=== PATIENT | female | born 1940 | race African-American/Black ===

== ENCOUNTER 2016-10-09 12:31 | Emergency (ER) | payer OTHER, MEDICAID ==
[~2016-10-09 12:31] MED LIST: ASPI81TA9 PO; DILT30TA26 PO; IBUP-1027 PO; LISI1TAB3 PO; LISI1TAB7 PO; NAPR220C4 PO; TIZA4TAB8 PO; TRAM50TA PO
[2016-10-09 12:59] VITALS: BP 132/63
--- NOTE | 2016-10-09 13:28 | RAD ---
Chest, 2 views, 10/09/2016: History: Cough and shortness of breath Comparison is made to a study from 04/13/2016. The heart is at the upper limits of normal in size. The pulmonary vascularity is normal. An unchanged dense nodule in the left base is compatible with a granuloma. No acute infiltrates are seen. There is no evidence of pleural fluid. IMPRESSION: No acute cardiopulmonary abnormality is detected.
[2016-10-09 13:46] LABS: OBC FLU VALID
[2016-10-09] MEDS ORDERED: PRED50TA PO (14:43)
[2016-10-09] MEDS ORDERED: PROM5SYR2 PO (14:43)
[2016-10-09] MEDS ORDERED: PROAIR RESPICL90 MCG IH (14:43)
[2016-10-09] MEDS ORDERED: AZIT250T6 PO (14:43)
--- NOTE | 2016-10-09 14:43 | PHYS DOC ---
Past Medical History Past Medical History: A-Fib, Hypertension, Other Additional Past Medical Histor: BREAST CANCER, Atrial fibrillation Past Surgical History: Cholecystectomy Additional Past Surgical Histo: L breast Alcohol Use: None Drug Use: Marijuana Adult General Chief Complaint Chief Complaint: FLU SYMPTOM HPI HPI Patient is a 76 year old female with history of hypertension and smoking who presents today with subjective fevers, body aches, chills and right ear pain for one week. Patient states she is also a smoker. Patient denies any chest pain or shortness of breath. PCP Dr. Holland Review of Systems Review of Systems Constitutional: Subjective fevers and chills Eyes: Denies change in visual acuity, redness, or eye pain [] HENT: Right ear pain Respiratory: Cough and nasal congestion Cardiovascular: No additional information not addressed in HPI [] GI: Denies abdominal pain, nausea, vomiting, bloody stools or diarrhea [] : Denies dysuria or hematuria [] Musculoskeletal: Denies back pain or joint pain [] Integument: Denies rash or skin lesions [] Neurologic: Denies headache, focal weakness or sensory changes [] Endocrine: Denies polyuria or polydipsia [] Allergies Allergies Allergies Coded Allergies Type Severity Reaction Last Updated Verified No Known Drug Allergies 01/14/14 No Physical Exam Physical Exam Constitutional: Well developed, well nourished, no acute distress, non-toxic appearance. [] HENT: Normocephalic, atraumatic, bilateral external ears normal, oropharynx moist, no oral exudates, nose normal. [] Eyes: PERRLA, EOMI, conjunctiva normal, no discharge. [] Neck: Normal range of motion, no tenderness, supple, no stridor. [] Cardiovascular:Heart rate regular rhythm, no murmur [] Lungs & Thorax: Bilateral breath sounds clear to auscultation [] Abdomen: Bowel sounds normal, soft, no tenderness, no masses, no pulsatile masses. [] Skin: Warm, dry, no erythema, no rash. [] Back: No tenderness, no CVA tenderness. [] Extremities: No tenderness, no cyanosis, no clubbing, ROM intact, no edema. [] Neurologic: Alert and oriented X 3, normal motor function, normal sensory function, no focal deficits noted. [] Psychologic: Affect normal, judgement normal, mood normal. [] Current Patient Data Vital Signs Vital Signs Date Time Temp Pulse Resp B/P Pulse Ox O2 Delivery O2 Flow Rate FiO2 10/09/16 12:59 98.2 69 18 96 Room Air 98.2 Lab Values Laboratory Tests Test 10/09/16 13:04 Influenza Type A Antigen Negative (NEGATIVE) Influenza Type B Antigen Negative (NEGATIVE) EKG EKG [] Radiology/Procedures Radiology/Procedures [] Course & Med Decision Making Course & Med Decision Making Pertinent Labs and Imaging studies reviewed. (See chart for details) Patient with history of smoking presents today with a cough, right ear pain, body aches and subjective fevers for week. Chest x-ray interpreted by radiologist is negative for any acute findings. Negative influenza A or B. Patient is in no distress. Considering her medical history history i put her on the Z-Bert to cover her for bacterial bronchitis. Discharge her with prednisone as well as albuterol inhaler. Encouraged her to consider smoking cessation. Follow-up with her own doctor next week. Dragon Disclaimer Dragon Disclaimer This electronic medical record was generated, in whole or in part, using a voice recognition dictation system. Departure Departure Impression: Primary Impression: Acute bronchitis Additional Impression: Smoking addiction Disposition: HOME, SELF-CARE Condition: STABLE Referrals: MARCO LOGAN MD (PCP) Follow-up with your own doctor in one week Patient Instructions: Acute Bronchitis, [id number] Additional Instructions: You were seen for acute bronchitis. Please complete your antibiotics. Take the prescribed medicines as ordered. Stop smoking. Follow-up with your doctor in the next 7 days. Come back to the emergency room if symptoms worsen. Scripts Promethazine HCl/Codeine (Prometh-Codein 6.25-10 mg/5 ml)5 Ml Syrup5 Ml PO Q6HRS #80 Prov:JOSE EDUARDO FLANNERY APRN 10/09/16 Azithromycin (Azithromycin Tablet)250 Mg Tablet1 Pkg PO UD #6 TAB Prov:JOSE EDUARDO FLANNERY LANGUAGE PATH 10/09/16 Prednisone 50 Mg Tablet1 Tab PO DAILY #5 TAB Prov:JOSE EDUARDO FLANNERY LANGUAGE PATH 10/09/16 Albuterol Sulfate (Proair Respiclick)90 Mcg Aer.pow.ba1 Puff IH PRN Q6HRS PRN SHORTNESS OF BREATH #1 INHALER Prov:JOSE EDUARDO FLANNERY APRN 10/09/16 Problem Qualifiers Primary Impression: Acute bronchitis Bronchitis organism: unspecified organism Qualified Code: J20.9 - Acute bronchitis, unspecified JOSE EDUARDO FLANNERY LANGUAGE PATH Oct 09, 2016 14:43
== END 2016-10-09 14:35 | disposition home or self-care (01) ==
LOC: ER 12:31
DX: J20.9 Acute bronchitis, unspecified (principal); I10 Essential (primary) hypertension; I48.91 Unspecified atrial fibrillation; F12.10 Cannabis abuse, uncomplicated; F17.210 Nicotine dependence, cigarettes, uncomplicated; Z90.49 Acquired absence of other specified parts of digestive tract
CPT/HCPCS: 71020; 87804; 99285-25

== ENCOUNTER → 2016-11-11 | Outpatient (CLI) | payer MEDICAID, OTHER ==
[~2016-11-11] MED LIST changes: +AZIT250T6 PO; +PRED50TA PO; +PROAIR RESPICL90 MCG IH; +PROM5SYR2 PO
--- NOTE | 2016-11-11 10:49 | KCIC ---
PROCEDURE Bilateral digital screening mammogram. HISTORY 76-year-old female with a history of left breast cancer, status post left breast conservation therapy, presents for annual mammography. TECHNIQUE Full field digital craniocaudal and mediolateral oblique views of both breasts are obtained. Computer-aided detection is applied. COMPARISON 10/24/2015 and 10/16/2014 FINDINGS Breast parenchymal composition: Level B - Scattered fibroglandular densities. There is relative decreased left breast size with architectural distortion, increased density and skin thickening due to prior breast conservation therapy. There are several clustered and scattered calcifications within the left breast which demonstrate benign morphology, stable in appearance. There is no calcification within either breast with suspicious morphology. There is density within the medial left breast which is due to a skin fold. There is density within the superior right breast on the mediolateral oblique view without a correlate on the craniocaudal view, consistent with summation artifact. IMPRESSION BI-RADS category 2: Benign finding. Annual mammography is recommended. Mammography is not 100% sensitive in detecting breast cancer. Therefore, a self breast exam and a clinical breast exam are very important. A negative mammogram does not negate a clinically suspicious finding and should not result in a delay in biopsying a clinically suspicious abnormality. This patient's information has been entered into a reminder system for the patient to be notified with the results of this examination and a target date for her next mammograms. Electronically signed by: Ana Odonnell (Nov 11, 2016 10:47:03)
== END | disposition home or self-care (01) ==
LOC: KCIC MAMMO 09:23
PROVIDERS: ATTEND Internal Medicine
DX: Z12.31 Encounter for screening mammogram for malignant neoplasm of breast (principal); Z85.3 Personal history of malignant neoplasm of breast; Z90.12 Acquired absence of left breast and nipple
CPT/HCPCS: G0202; 77067

== ENCOUNTER 2016-12-28 09:07 | Emergency (ER) | payer OTHER ==
[~2016-12-28] VITALS: Ht 167.6 cm; Wt 83.5 kg
--- NOTE | 2016-12-28 09:56 | PHYS DOC ---
Past Medical History Past Medical History: A-Fib, Hypertension, Other Additional Past Medical Histor: BREAST CANCER, Atrial fibrillation Past Surgical History: Cholecystectomy Additional Past Surgical Histo: L breast Additional Information: 09/20 ppd Alcohol Use: None Drug Use: Marijuana Adult General Chief Complaint Chief Complaint: SORE THROAT HPI HPI Patient is a 76 year old female with history of A. fib and hypertension who presents today with sore throat coughing and nasal congestion that began a week ago. Patient states she's had intermittent subjective fevers. She also states she is a smoker. Patient denies any chest pain or shortness of breath. She states she's been using [id number] remedies with no relief. Review of Systems Review of Systems Constitutional: Subjective fevers Eyes: Denies change in visual acuity, redness, or eye pain [] HENT: Nasal congestion and sore throat [] Respiratory: Cough Cardiovascular: No additional information not addressed in HPI [] GI: Denies abdominal pain, nausea, vomiting, bloody stools or diarrhea [] : Denies dysuria or hematuria [] Musculoskeletal: Denies back pain or joint pain [] Integument: Denies rash or skin lesions [] Neurologic: Denies headache, focal weakness or sensory changes [] Endocrine: Denies polyuria or polydipsia [] Current Medications Current Medications Current Medications Medications (Trade) Dose Ordered Sig/Sánchez Start Time Stop Time Status Last Admin Dose Admin Lidocaine HCl (Viscous Lidocaine) 15 ml 1X ONCE 12/28/16 10:00 12/28/16 10:01 DC 12/28/16 10:25 15 ML Allergies Allergies Allergies Coded Allergies Type Severity Reaction Last Updated Verified No Known Drug Allergies 01/14/14 No Physical Exam Physical Exam Constitutional: Well developed, well nourished, no acute distress, non-toxic appearance. [] HENT: Normocephalic, atraumatic, bilateral external ears normal, oropharynx moist, no oral exudates, nose normal. [] Eyes: PERRLA, EOMI, conjunctiva normal, no discharge. [] Neck: Normal range of motion, no tenderness, supple, no stridor. [] Cardiovascular:Heart rate regular rhythm, no murmur [] Lungs & Thorax: Bilateral breath sounds clear to auscultation [] Abdomen: Bowel sounds normal, soft, no tenderness, no masses, no pulsatile masses. [] Skin: Warm, dry, no erythema, no rash. [] Back: No tenderness, no CVA tenderness. [] Extremities: No tenderness, no cyanosis, no clubbing, ROM intact, no edema. [] Neurologic: Alert and oriented X 3, normal motor function, normal sensory function, no focal deficits noted. [] Psychologic: Affect normal, judgement normal, mood normal. [] Current Patient Data Vital Signs Vital Signs Date Time Temp Pulse Resp B/P Pulse Ox O2 Delivery O2 Flow Rate FiO2 12/28/16 09:09 97.7 74 20 161/65 98 Room Air 97.7 Lab Values Laboratory Tests Test 12/28/16 10:13 12/28/16 10:25 Group A Streptococcus Rapid Negative (NEGATIVE) Influenza Type A Antigen Negative (NEGATIVE) Influenza Type B Antigen Negative (NEGATIVE) EKG EKG [] Radiology/Procedures Radiology/Procedures [] Course & Med Decision Making Course & Med Decision Making Pertinent Labs and Imaging studies reviewed. (See chart for details) Patient is in the ED with symptoms of viral illness including cough nasal congestion and subjective fevers. She has history of smoking, she was encouraged to consider smoking cessation. Negative rapid strep, negative influenza A or B, chest x-ray interpreted by radiologist as negative for any acute findings. Symptoms are viral. Patient was discharged with Tessalon Perles and lidocaine viscous. Follow-up with primary care doctor in a week. Dragon Disclaimer Dragon Disclaimer This electronic medical record was generated, in whole or in part, using a voice recognition dictation system. Departure Departure Impression: Primary Impression: Smoking addiction Additional Impressions: Upper respiratory infection Fever Cough Disposition: 01 HOME, SELF-CARE Condition: STABLE Referrals: DAISHA FUENTES MD (PCP) Follow-up with your doctor in 1-2 weeks. Patient Instructions: Cough, Adult, Upper Respiratory Infection, Adult Additional Instructions: You were seen with symptoms consistent with an upper respiratory infection. Use the prescribed medicines as needed. Follow-up with the primary care doctor in a week. Consider smoking cessation. Come back to the ED if symptoms worsen. Scripts Lidocaine Hcl (Lidocaine Hcl Viscous)20 Mg/1 Ml Solution5 Ml PO TID #100 ML Prov:FRANUNGA,JOSE EDUARDO BUSINESS INITIATIVES MANAGER 12/28/16 Albuterol Sulfate (Proair Respiclick)90 Mcg Aer.pow.ba1 Puff IH PRN Q6HRS PRN SHORTNESS OF BREATH #1 INHALER Prov:JOSE EDUARDO FLANNERY BUSINESS INITIATIVES MANAGER 12/28/16 Benzonatate (Tessalon Perle)100 Mg Capsule1 Cap PO TID #30 CAP Prov:JOSE EDUARDO FLANNERY APRN 12/28/16 Problem Qualifiers Additional Impressions: Upper respiratory infection URI type: unspecified URI Qualified Code: J06.9 - Acute upper respiratory infection, unspecified Fever Fever type: unspecified Qualified Code: R50.9 - Fever, unspecified JOSE EDUARDO FLANNERY APRN Dec 28, 2016 09:56
[2016-12-28] MEDS ORDERED: LIDOCAINE 2% VISCOUS 15 ML SOLUTION. SWSW ONE (10:00)
--- NOTE | 2016-12-28 10:26 | RAD ---
AP portable chest radiograph 12/28/2016 Clinical History: Sore throat, painful swallowing and cough for one week. An AP portable erect digital radiograph of the chest was obtained. Comparison study is dated 10/09/2016. The cardiac silhouette is mildly enlarged. The thoracic aorta is tortuous. Atherosclerotic calcification of the thoracic aorta is seen. A 1 cm calcified granuloma is seen in the left lower lobe, unchanged. No acute pulmonary infiltrate is noted. No pneumothorax or pleural effusion is seen. Degenerative changes are seen involving the thoracic spine. Impression: No acute pulmonary infiltrate is seen.
[2016-12-28 10:56] LABS: OBC FLU VALID
[2016-12-28 10:59] LABS: NEGATIVE OBC STREP NEG; POSITIVE OBC STREP POS
[2016-12-28] MEDS ORDERED: LIDO20SO PO (11:46)
[2016-12-28] MEDS ORDERED: PROAIR RESPICL90 MCG IH (11:46)
[2016-12-28] MEDS ORDERED: BENZ100C PO (11:46)
[2016-12-28 11:49] VITALS: BP 131/88
== END 2016-12-28 12:00 | disposition home or self-care (01) ==
LOC: ER 09:07
DX: J06.9 Acute upper respiratory infection, unspecified (principal); R50.9 Fever, unspecified; F17.200 Nicotine dependence, unspecified, uncomplicated; F12.10 Cannabis abuse, uncomplicated; I10 Essential (primary) hypertension
CPT/HCPCS: 71010; 87070; 87804; 87880; 99285-25

== ENCOUNTER → 2017-04-22 | Outpatient (CLI) | payer BC, MEDICAID ==
[~2017-04-22] MED LIST changes: +ASPI-612 PO; -ASPI81TA9 PO; +BENZ100C PO; +LIDO20SO PO
--- NOTE | 2017-04-22 14:59 | RAD ---
Two-view right hip radiograph 04/22/2017 Clinical indication: Chronic right hip pain radiating to the right thigh. No focal injury. Comparison: CT abdomen and pelvis November 03, 2011 Findings: No acute right hip fracture or traumatic malalignment. Mild right hip osteoarthritis with joint space narrowing and subchondral cystic formation. Impression: Mild right hip osteoarthritis with no acute fracture or dislocation.
== END | disposition home or self-care (01) ==
LOC: RAD 10:48
PROVIDERS: ATTEND Internal Medicine
DX: M16.11 Unilateral primary osteoarthritis, right hip (principal)
CPT/HCPCS: 73502

== ENCOUNTER → 2017-11-24 | Outpatient (CLI) | payer BC, MEDICAID | END | disposition home or self-care (01) | LOC: KCIC MAMMO 14:48 | DX: Z12.31 Encounter for screening mammogram for malignant neoplasm of breast (principal); Z85.3 Personal history of malignant neoplasm of breast | CPT/HCPCS: 77063; 77067 ==

== ENCOUNTER → 2018-05-29 | Outpatient (CLI) | payer BC, MEDICAID ==
[2018-03-02 08:39] VITALS: BP 165/67
[~2018-05-29] MED LIST changes: +ASPI-630 PO; +ATOR10TA60 PO; +METO-239 PO; +NICO1PAT25 TP
--- NOTE | 2018-05-29 15:11 | KCIC ---
PQRS Compliance Statement: One or more of the following individualized dose reduction techniques were utilized for this examination: 1. Automated exposure control 2. Adjustment of the mA and/or kV according to patient size 3. Use of iterative reconstruction technique CT chest without contrast 05/29/2018 INDICATION: Lung nodule. Smoker 60 years. COMPARISON: CT abdomen/pelvis February 26, 2018. TECHNIQUE: Multiple axial CT images of the chest were obtained without intravenous contrast. Coronal and sagittal reformats are provided. FINDINGS: The thyroid gland is normal in appearance. There is a superior paratracheal lymph node measuring 8 mm by short axis. There is a prevascular lymph node measuring 7 mm by short axis. A precarinal lymph node measures 14 mm by short axis (series 2, image 77). Calcified mediastinal and left hilar lymph nodes are identified. There is a calcified AP window lymph node. Evaluation for right hilar lymphadenopathy is limited due to the lack of intravenous contrast. Heart size is within normal limits. Three-vessel coronary artery vascular calcifications are present. There is no pericardial effusion. Thoracic aorta is normal in caliber. Anterior chest wall soft tissues are normal. Thoracic esophagus is normal in appearance. There is a 4 mm solid noncalcified pulmonary nodule in the anterior left lower lobe (series 5, image 41). There is a calcified granuloma measuring 15 mm in the left lower lobe. There is a 3 mm solid noncalcified pulmonary nodule in the medial left lower lobe (series 5, image 35). There is a 7 mm solid noncalcified pulmonary nodule in the posterior right upper lobe (series 5, image 19). There is a 3 mm calcified granuloma in the superior segment right lower lobe. There are no pleural effusions. No pulmonary vascular congestion or pneumothorax. Evaluation of the solid abdominal viscera is limited by lack of intravenous contrast. Calcifications within the spleen likely represent sequela prior granulomatous exposure. Renal hilar vascular calcifications are noted on the left. Gallbladder is surgically absent. No suspicious osseous abnormality is visualized. IMPRESSION: There is a 7 mm solid noncalcified pulmonary nodule in the right upper lobe. Additional solid noncalcified pulmonary nodules are present, as detailed above. Recommend a 6-12 month follow-up chest CT per Fleischner 2017 pulmonary nodule guidelines. Electronically signed by: Luana Rios MD (05/29/2018 3:08 PM) [facility]
--- NOTE | 2018-05-29 15:40 | KCIC ---
Pelvic ultrasound Clinical Indication: . Adnexal cyst. Follow-up from February 26, 2018.. Uterus: * Size (in centimeters): 7.4 length by 3.5 AP by 4.1 wide * Appearance: No evidence of mass * Endometrium: 1.5 mm endometrial stripe thickness. Right ovary: 5.6 cm right adnexal cyst. This appears similar as on the prior study. The right ovarian tissue is otherwise not evaluated on this exam. Left ovary: Not visualized Free fluid: None IMPRESSION: Right adnexal cyst is stable since previous exam. Electronically signed by: Layo Aguayo MD (05/29/2018 3:36 PM) [id number]
== END | disposition home or self-care (01) ==
LOC: KCIC US 12:41
PROVIDERS: ATTEND Internal Medicine
DX: N83.291 Other ovarian cyst, right side (principal); J84.10 Pulmonary fibrosis, unspecified; I25.10 Atherosclerotic heart disease of native coronary artery without angina pectoris; R91.8 Other nonspecific abnormal finding of lung field; I13.0 Hypertensive heart and chronic kidney disease with heart failure and stage 1 through stage 4 chronic kidney disease, or unspecified chronic kidney disease; I50.32 Chronic diastolic (congestive) heart failure; N18.3 Chronic kidney disease, stage 3 (moderate); I48.0 Paroxysmal atrial fibrillation; K21.9 Gastro-esophageal reflux disease without esophagitis; Z87.891 Personal history of nicotine dependence; Z85.3 Personal history of malignant neoplasm of breast; Z90.49 Acquired absence of other specified parts of digestive tract; Z90.12 Acquired absence of left breast and nipple; Z82.49 Family history of ischemic heart disease and other diseases of the circulatory system
CPT/HCPCS: 71250; 76856

== ENCOUNTER 2018-08-25 14:14 | Emergency (ER) | payer BC, MEDICAID ==
[~2018-08-25] VITALS: Ht 167.6 cm; Wt 78.9 kg
--- NOTE | 2018-08-25 14:43 | PHYS DOC ---
Past Medical History Past Medical History: A-Fib, Cancer, Hypertension, Other Additional Past Medical Histor: BREAST CANCER, Atrial fibrillation Past Surgical History: Cholecystectomy Additional Past Surgical Histo: L breast Additional Information: 0.5 PPD Alcohol Use: None Drug Use: Marijuana Adult General Chief Complaint Chief Complaint: HEADACHE HPI HPI Patient is a 78 year old female who presents with headache. This headache is been present for the past 2-1/2-3 days. Waxing and waning over time. Patient has not taken any medication at home for this headache. Seems to get worse with saltier foods such as sausage that she ate this morning. Patient just feels "off." Patient denies worse headache of life. Denies any fever, change in vision , nausea or vomiting. Denies any trauma.[] Review of Systems Review of Systems Constitutional: Denies fever or chills [] Eyes: Denies change in visual acuity, redness, or eye pain [] HENT: Denies nasal congestion or sore throat [] Respiratory: Denies cough or shortness of breath [] Cardiovascular: No chest pain or palpitations[] GI: Denies abdominal pain, nausea, vomiting, bloody stools or diarrhea [] : Denies dysuria or hematuria [] Musculoskeletal: Denies back pain or joint pain [] Integument: Denies rash or skin lesions [] Neurologic: Denies focal weakness or sensory changes [] Endocrine: Denies polyuria or polydipsia [] All other systems were reviewed and found to be within normal limits, except as documented in this note. Current Medications Current Medications Current Medications Medications (Trade) Dose Ordered Sig/[facility] Start Time Stop Time Status Last Admin Dose Admin Ketorolac Tromethamine (Toradol 15mg Vial) 10 mg 1X ONCE 08/25/18 14:45 08/25/18 14:46 DC 08/25/18 15:09 10 MG Allergies Allergies Allergies Coded Allergies Type Severity Reaction Last Updated Verified No Known Drug Allergies 01/14/14 No Physical Exam Physical Exam Constitutional: Well developed, well nourished, no acute distress, non-toxic appearance. [] HENT: Normocephalic, atraumatic, bilateral external ears normal, oropharynx moist, no oral exudates, nose normal. [] Eyes: PERRLA, EOMI, conjunctiva normal, no discharge. [] Neck: Normal range of motion, no tenderness, supple, no stridor. [] Cardiovascular:Heart rate regular rhythm, no murmur [] Lungs & Thorax: Bilateral breath sounds clear to auscultation [] Abdomen: Bowel sounds normal, soft, no tenderness, no masses, no pulsatile masses. [] Skin: Warm, dry, no erythema, no rash. [] Back: No tenderness, no CVA tenderness. [] Extremities: No tenderness, no cyanosis, no clubbing, ROM intact, no edema. [] Neurologic: Alert and oriented X 3, normal motor function, normal sensory function, no focal deficits noted. Strength is 5 out of 5 all 4 extremities. DTRs are 2 over 4 and symmetric in the biceps, triceps, patella, and Achilles. NIH of 0 [] Psychologic: Affect normal, judgement normal, mood normal. [] Current Patient Data Vital Signs Vital Signs Date Time Temp Pulse Resp B/P (MAP) Pulse Ox O2 Delivery O2 Flow Rate FiO2 08/25/18 14:17 98.2 72 18 151/82 (105) 97 Room Air 98.2 Lab Values Laboratory Tests Test 08/25/18 14:42 08/25/18 16:15 White Blood Count 5.0 x10^3/uL (4.0-11.0) Red Blood Count 4.56 x10^6/uL (3.50-5.40) Hemoglobin 14.9 g/dL (12.0-15.5) Hematocrit 42.4 % (36.0-47.0) Mean Corpuscular Volume 93 fL (79-100) Mean Corpuscular Hemoglobin 33 pg (25-35) Mean Corpuscular Hemoglobin Concent 35 g/dL (31-37) Red Cell Distribution Width 13.6 % (11.5-14.5) Platelet Count 258 x10^3/uL (140-400) Neutrophils (%) (Auto) 52 % (31-73) Lymphocytes (%) (Auto) 39 % (24-48) Monocytes (%) (Auto) 7 % (0-9) Eosinophils (%) (Auto) 2 % (0-3) Basophils (%) (Auto) 1 % (0-3) Neutrophils # (Auto) 2.6 x10^3uL (1.8-7.7) Lymphocytes # (Auto) 1.9 x10^3/uL (1.0-4.8) Monocytes # (Auto) 0.3 x10^3/uL (0.0-1.1) Eosinophils # (Auto) 0.1 x10^3/uL (0.0-0.7) Basophils # (Auto) 0.0 x10^3/uL (0.0-0.2) Prothrombin Time 12.9 SEC (11.7-14.0) Prothrombin Time INR 1.0 (0.8-1.1) Sodium Level 140 mmol/L (136-145) Potassium Level 3.6 mmol/L (3.5-5.1) Chloride Level 103 mmol/L (98-107) Carbon Dioxide Level 29 mmol/L (21-32) Anion Gap 8 (6-14) Blood Urea Nitrogen 22 mg/dL (7-20) H Creatinine 1.6 mg/dL (0.6-1.0) H Estimated GFR (Cockcroft-Gault) 37.8 BUN/Creatinine Ratio 14 (6-20) Glucose Level 110 mg/dL (70-99) H Calcium Level 9.1 mg/dL (8.5-10.1) Magnesium Level 1.8 mg/dL (1.8-2.4) Total Bilirubin 0.2 mg/dL (0.2-1.0) Aspartate Amino Transferase (AST) 18 U/L (15-37) Alanine Aminotransferase (ALT) 18 U/L (14-59) Alkaline Phosphatase 88 U/L (46-116) Ammonia 22 mcmol/L (11-34) Troponin I Quantitative < 0.017 ng/mL (0.000-0.055) YA-Swb-N-Type Natriuretic Peptide 1322 pg/mL (0-449) H Total Protein 7.9 g/dL (6.4-8.2) Albumin 3.2 g/dL (3.4-5.0) L Albumin/Globulin Ratio 0.7 (1.0-1.7) L Urine Collection Type Unknown Urine Color Yellow Urine Clarity Clear Urine pH 5.5 Urine Specific [place] 1.020 Urine Protein Negative mg/dL (NEG-TRACE) Urine Glucose (UA) Negative mg/dL (NEG) Urine Ketones (Stick) Negative mg/dL (NEG) Urine Blood Negative (NEG) Urine Nitrite Negative (NEG) Urine Bilirubin Negative (NEG) Urine Urobilinogen Dipstick 1.0 mg/dL (0.2 mg/dL) Urine Leukocyte Esterase Trace (NEG) Urine RBC 3-5 /HPF (0-2) Urine WBC 5-10 /HPF (0-4) Urine Squamous Epithelial Cells Many /LPF Urine Bacteria Moderate /HPF (0-FEW) Urine Hyaline Casts Few /HPF Urine Mucus Marked /LPF Laboratory Tests 08/25/18 14:42 Laboratory Tests 08/25/18 14:42 EKG EKG EKG shows a sinus rhythm at 71 beats per minute. No ST elevation. Normal axis, QTC of 463 ms, no old EKG available for comparison. Nonspecific ST changes, occasional PACs[] Radiology/Procedures Radiology/Procedures Head CT shows no acute intracranial abnormality Chest x-ray shows no acute cardiopulmonary abnormality[] Course & Med Decision Making Course & Med Decision Making Pertinent Labs and Imaging studies reviewed. (See chart for details) ED course: Patient arrived, was placed in bed, and tolerated exam well. Patient was transported to and from [place] without any complications. Patient reported that her headache improved with the ketorolac. After the return of the lab and CT findings, these were discussed with the patient, who voiced understanding. All questions were answered. Jian decision making: There is no evidence of stroke syndrome, acute coronary syndrome, pneumonia, pneumothorax, nor other significant, acute problem. The urine is noted with the white cells, and a significant number of epithelial cells. We will address this with a short course of oral outpatient antibiotics in more of a prophylactic fashion.[] Dragon Disclaimer Dragon Disclaimer This electronic medical record was generated, in whole or in part, using a voice recognition dictation system. Departure Departure Impression: Primary Impression: Headache Additional Impressions: Malaise Urinary tract infection Disposition: HOME, SELF-CARE Condition: GOOD Referrals: DAISHA FUENTES MD (PCP) Follow-up in 2 days Patient Instructions: General Headache Without Cause, Urinary Tract Infection Additional Instructions: Drink plenty of fluids. Follow-up with your regular doctor in 2 days. Return to the ER if worsening pain, fever, or any other concerns. Scripts Cephalexin (CEPHALEXIN) 500 Mg Tablet 1 TAB PO TID, #30 TAB Prov: ALVIN LOCKWOOD 08/25/18 Meloxicam (MELOXICAM) 7.5 Mg Tablet 7.5 MG PO DAILY, #20 TAB Prov: ALVIN LOCKWOOD DO 08/25/18 Problem Qualifiers Primary Impression: Headache Headache type: unspecified Headache chronicity pattern: acute headache Intractability: not intractable Qualified Codes: R51 - Headache Additional Impressions: Urinary tract infection Urinary tract infection type: site unspecified Hematuria presence: without hematuria Qualified Codes: N39.0 - Urinary tract infection, site not specified ALVIN LOCKWOOD DO Aug 25, 2018 14:43
[2018-08-25] MEDS ORDERED: KETOROLAC 15 MG/ML VIAL. IV ONE (14:45)
--- NOTE | 2018-08-25 14:47 | EKG ---
[facility] [address] [place] [address] Test Date: 2018-08-25 Test Time: 14:44:38 Pat Name: CARYL RO Department: Room: Gender: F Research Aide: TW : 1940 Requested By: ALVIN LOCKWOOD Order Number: [id number] Reading MD: Measurements Intervals [place] Rate: 71 P: 50 WV: 172 QRS: 44 QRSD: 98 T: 106 QT: 426 QTc: 463 Interpretive Statements SINUS RHYTHM ATRIAL PREMATURE COMPLEX(ES) LVH WITH REPOLARIZATION ABNORMALITY QRS(T) CONTOUR ABNORMALITY CONSIDER ANTEROSEPTAL MYOCARDIAL DAMAGE ABNORMAL ECG RI6.01 Compared to ECG 02/26/2018 01:45:27 No significant changes
[2018-08-25 14:52] LABS: BASO % 1 % (0-3); EOS # 0.1 x10^3/uL (0.0-0.7); EOS % 2 % (0-3); HEMATOCRIT 42.4 % (36.0-47.0); HEMOGLOBIN 14.9 g/dL (12.0-15.5); LYMPH # 1.9 x10^3/uL (1.0-4.8); LYMPH % 39 % (24-48); MEAN CORPUSCULAR HEMOGLOBIN 33 pg (25-35); MEAN CORPUSCULAR HGB CONC 35 g/dL (31-37); MEAN CORPUSCULAR VOLUME 93 fL (79-100); MONO # 0.3 x10^3/uL (0.0-1.1); MONO % 7 % (0-9); NEUT # 2.6 x10^3uL (1.8-7.7); NEUT % 52 % (31-73); PLATELET COUNT 258 x10^3/uL (140-400); RED BLOOD COUNT 4.56 x10^6/uL (3.50-5.40); RED CELL DISTRIBUTION WIDTH 13.6 % (11.5-14.5)
[2018-08-25 15:03] LABS: PROTHROMBIN TIME PATIENT 12.9 SEC (11.7-14.0)
[2018-08-25 15:08] LABS: CALCIUM 9.1 mg/dL (8.5-10.1); CREATININE 1.6 mg/dL (0.6-1.0); GFR 37.8; POTASSIUM 3.6 mmol/L (3.5-5.1)
[2018-08-25 15:15] LABS: ALBUMIN 3.2 g/dL (3.4-5.0); ALBUMIN/GLOBULIN RATIO 0.7 (1.0-1.7); MAGNESIUM 1.8 mg/dL (1.8-2.4); TOTAL BILIRUBIN 0.2 mg/dL (0.2-1.0); TOTAL PROTEIN 7.9 g/dL (6.4-8.2)
--- NOTE | 2018-08-25 15:27 | RAD ---
CT scan of the head without contrast 08/25/2018 Clinical History: Headaches and weakness. Technique: Unenhanced, contiguous, 5 mm axial sections were obtained through the head. One or more of the following individualized dose reduction techniques were utilized for this study: 1. Automated exposure control. 2. Adjustment of the mA and/or kV according to patient size. 3. Use of iterative reconstruction technique. Findings: Comparison study is dated 01/14/2014. There is generalized parenchymal atrophy. Areas of decreased attenuation are seen within the periventricular and subcortical white matter of both cerebral hemispheres consistent with areas of small vessel ischemic disease. No acute parenchymal abnormality is seen. No extra-axial fluid collection is noted. No skull fracture is seen. Impression: No acute intracranial abnormality is seen. Electronically signed by: Sarkis Corado MD (08/25/2018 3:24 PM) [id number]
--- NOTE | 2018-08-25 15:52 | RAD ---
Single view chest 08/25/2018 CLINICAL INDICATION: Headache and weakness. COMPARISON: Chest 12/28/2016 FINDINGS: Cardiac and mediastinal silhouettes unremarkable. Calcified granuloma in the left lower lobe. No pleural effusion, pneumothorax or focal consolidation. IMPRESSION: No acute cardiopulmonary abnormality. Electronically signed by: Brennan Lawson MD (08/25/2018 3:48 PM) [id number]
[2018-08-25 16:30] LABS: BILIRUBIN,URINE NEGATIVE (NEG); CLARITY,URINE CLEAR; COLOR,URINE YELLOW; NITRITE,URINE NEGATIVE (NEG); PH,URINE 5.5; PROTEIN,URINE NEGATIVE (NEG-TRACE)
[2018-08-25 16:36] VITALS: BP 182/67
[2018-08-25 16:47] LABS: HYALINE CASTS, URINE FEW /HPF; SQUAMOUS EPITHELIAL CELL,UR MANY /LPF
[2018-08-25 16:48] LABS: BACTERIA,URINE MODERATE /HPF (0-FEW)
[2018-08-25] MEDS ORDERED: MELO7.5T29 PO (17:14)
[2018-08-25] MEDS ORDERED: CEPH500T PO (17:14)
== END 2018-08-25 17:31 | disposition home or self-care (01) ==
LOC: ER 14:14
DX: R51 Headache (principal); N39.0 Urinary tract infection, site not specified; R53.81 Other malaise; I48.91 Unspecified atrial fibrillation; I10 Essential (primary) hypertension; F17.200 Nicotine dependence, unspecified, uncomplicated
CPT/HCPCS: 36415; 70450; 71045; 80053; 81001; 82140; 83735; 83880; 84484; 85025; 85610; 87086; 93005; 96374; 99284; J1885

== ENCOUNTER → 2018-11-21 | Outpatient (CLI) | payer BC, MEDICAID ==
[~2018-11-21] MED LIST changes: +CEPH500T PO; +MELO7.5T29 PO
--- NOTE | 2018-11-22 03:50 | KCIC ---
Pelvic ultrasound dated 11/21/2018. Comparison made to 05/29/2018. CLINICAL INDICATION: Follow-up right adnexal lesion. FINDINGS: Transverse abdominal pelvic ultrasound was performed. Uterus measures 7.9 x 4.1 x 4.9 cm. No focal uterine mass. Endometrial complex is normal in thickness for age measuring 3 mm. Ovaries are not well evaluated due to overlying bowel gas. The left ovary measures 2.0 x 1.9 x 2.5 cm. The right ovary is not clearly identified. There is a 5.0 x 4.8 x 4.6 cm cystic lesion at the right adnexa that probably not significantly changed in size from prior exam where it measured 5.6 x 3.5 x 4.1 cm previously.. No free fluid. IMPRESSION: 1. No significant interval change in right adnexal cystic lesion. Electronically signed by: Layo Olea MD (11/22/2018 3:46 AM) [facility]
== END | disposition home or self-care (01) ==
LOC: KCIC US 11:59
PROVIDERS: ATTEND Internal Medicine
DX: N83.201 Unspecified ovarian cyst, right side (principal)
CPT/HCPCS: 76856